=== PATIENT | female | born 1955 | race Caucasian/White ===

== ENCOUNTER → 2024-10-31 08:56 | Outpatient (REF) | payer MEDICARE, OTHER, SELFPAY | LOC: WDC 08:56 | PROVIDERS: ATTENDING PHYSICIAN Obstetrics & Gynecology; FAMILY PHYSICIAN Internal Medicine | DX: Z12.31 Encounter for screening mammogram for malignant neoplasm of breast (principal) | CPT/HCPCS: 77063; 77067 ==

== ENCOUNTER → 2025-05-29 08:49 | Outpatient (REF) | payer MEDICARE, OTHER, SELFPAY | LOC: WDC 08:49 | PROVIDERS: ATTENDING PHYSICIAN Obstetrics & Gynecology; FAMILY PHYSICIAN Internal Medicine | DX: R92.2 Inconclusive mammogram (principal); Z80.3 Family history of malignant neoplasm of breast | CPT/HCPCS: 76641 ==

== ENCOUNTER → 2025-11-01 08:13 | Outpatient (REF) | payer MEDICARE, OTHER, SELFPAY | LOC: WDC 08:13 | PROVIDERS: ATTENDING PHYSICIAN Obstetrics & Gynecology; FAMILY PHYSICIAN Internal Medicine | DX: Z12.31 Encounter for screening mammogram for malignant neoplasm of breast (principal) | CPT/HCPCS: 77063; 77067 ==